=== PATIENT | female | born 1960 | race Caucasian/White ===

== ENCOUNTER → 2018-03-21 | Outpatient (CLI) | payer BC ==
--- NOTE | 2018-03-22 08:26 | MR ---
EXAMINATION TYPE: MR shoulder RT wo con DATE OF EXAM: 03/21/2018 COMPARISON: NONE HISTORY: Right shoulder pain, 6 months TECHNIQUE: Multiplanar, multisequence imaging of the right shoulder is performed without contrast. FINDINGS: Rotator Cuff: There is a 1.1 x 1.7 cm through thickness near complete tear of the supraspinatus tendo n and its insertion. There is edema and irregularity involving the insertion of the infraspinatus tendon compatible with t endinosis and partial tear. Subscapularis tendon intact. Acromioclavicular Joint: Hypertrophic change of the AC joint noted with some impingement of the supra spinatus tendon and muscle. Glenohumeral Joint: Small amount of fluid in the glenohumeral joint. Ligaments appear intact. Labrum: Linear signal within the anterior superior labrum compatible with tear. Biceps Tendon: The long head of biceps is in normal location within bicipital groove. There is increa sed fluid surrounding the tendon. There appears to be intrasubstance increased signal within the rota tor interval. Bone marrow signal: Faint marrow signal noted involving the greater tuberosity likely related to reac tive marrow edema. IMPRESSION: 1. Large near complete through thickness tear supraspinatus tendon originating approximately 1.2 cm f rom the insertion and measuring 1.1 x 1.7 cm. 2. Tendinosis and partial tear distal margin infraspinatus tendon. 3. bicipital tendinosis with suspected split tear within the rotator interval but no evidence of thro ugh thickness tear or retraction. 4. AC joint arthropathy with findings suggestive of impingement. 5. Anterior superior labral tear.
== END | disposition home or self-care (01) ==
LOC: RADMRIMAIN 17:49
PROVIDERS: ATTEND Orthopaedic Surgery
DX: M75.121 Complete rotator cuff tear or rupture of right shoulder, not specified as traumatic (principal); M75.91 Shoulder lesion, unspecified, right shoulder; M75.21 Bicipital tendinitis, right shoulder; M19.011 Primary osteoarthritis, right shoulder; S46.811A Strain of other muscles, fascia and tendons at shoulder and upper arm level, right arm, initial encounter; S43.401A Unspecified sprain of right shoulder joint, initial encounter

== ENCOUNTER → 2018-05-08 | Outpatient (CLI) | payer BC ==
[2018-05-08 10:44] LABS: Basophils % (A) 0 %; Eosinophils # (A) 0.1 k/uL (0-0.7); Eosinophils % (A) 3 %; HCT 44.4 % (34.0-46.0); HGB 14.3 gm/dL (11.4-16.0); Lymphocytes # (A) 1.1 k/uL (1.0-4.8); Lymphocytes % (A) 22 %; MCH 29.6 pg (25.0-35.0); MCHC 32.2 g/dL (31.0-37.0); MCV 92.1 fL (80.0-100.0); Mean Platelet Volume 7.3; Monocytes # (A) 0.5 k/uL (0-1.0); Monocytes % (A) 10 %; Neutrophils # (A) 3.2 k/uL (1.3-7.7); Neutrophils % (A) 62 %; Platelet Count 175 k/uL (150-450); RBC 4.82 m/uL (3.80-5.40); RDW 12.8 % (11.5-15.5); WBC 5.2 k/uL (3.8-10.6)
[2018-05-08 11:08] LABS: Potassium 4.4 mmol/L (3.5-5.1)
== END | disposition home or self-care (01) ==
LOC: LABPAT 09:11
PROVIDERS: ATTEND Orthopaedic Surgery
DX: Z01.818 Encounter for other preprocedural examination (principal); Z01.812 Encounter for preprocedural laboratory examination; M75.41 Impingement syndrome of right shoulder
CPT/HCPCS: 36415; 80051; 85025; 93005

== ENCOUNTER 2018-06-05 06:05 | Day surgery (SDC) | payer BC ==
[2018-05-31 11:34] VITALS: BMI 26.2
--- NOTE | 2018-06-04 15:45 | HP ---
HISTORY AND PHYSICAL Surgery is scheduled for 06/05/2018. Melinda Abraham is a 58-year-old patient seen with progressive right shoulder pain. After having treatment options discussed she elected to proceed with right shoulder arthroscopy. Consent regarding the procedure was obtained. PAST MEDICAL HISTORY: Hypertension. PAST SURGICAL HISTORY: Right total hip arthroplasty. Left total hip arthroplasty. Tonsillectomy. DAILY MEDICATIONS: Antihypertensive. ALLERGIES: PENICILLIN. SOCIAL HISTORY: Patient denies current tobacco use. PHYSICAL EXAMINATION: Evaluation of the right shoulder: Flexion 140 degrees, abduction 140 degrees, external rotation is 40 degrees with pain and weakness. There is tenderness along the anterior lateral acromion rotator cuff insertion site. Impingement positive at 100 degrees. Drop-arm sign is positive. Distal neurovascular exam is intact. RADIOGRAPHS: Radiographs of the right shoulder revealed a type 2 anterior acromion, evidence for acromioclavicular joint osteoarthritis. An MRI of the right shoulder revealed rotator cuff tear, acromioclavicular osteoarthritis impingement and labral tear. IMPRESSION: 1. Right shoulder impingement with rotator cuff tear. 2. Right shoulder labral tear. 3. Right shoulder acromioclavicular joint osteoarthritis. PLAN: Right shoulder arthroscopy with subacromial decompression, possible arthroscopic rotator cuff repair, possible Paty procedure and debridement. MMODL / IJN: [id number] /
[~2018-06-05 06:05] MED LIST: DEXAMETHASONE SOD PHOSPHATE 10 MG/ML 1 ML VIAL IV ONE; HYDROmorphone 0.5 MG/0.5 ML SYRINGE IVP PRN; LACTATED RINGERS 1,000 ML IV SCH; LIDOCAINE 1% 20 ML VIAL (10MG/ML) FOR IV START INTRADERMA PRN; MIDAZOLAM 2 MG/2 ML VIAL IV PRN; ONDANSETRON 4 MG/2 ML VIAL IVP ONE; SCOPOLAMINE 1.5MG/72HR PATCH TRANSDERM ONE; ceFAZolin IN SWFI 2 GM/20 ML SYRINGE IVP ONE
[2018-06-05] MEDS ORDERED: GLYCOPYRROLATE 0.2 MG/ML 2 ML VIAL ONE (08:11)
[2018-06-05] MEDS ORDERED: LIDOCAINE 1% INJ 10MG/ML (20 ML MDV) ONE (08:11)
[2018-06-05] MEDS ORDERED: SUCCINYLCHOLINE CHLORIDE 100 MG/5 ML SYR IV ONE (08:11)
[2018-06-05] MEDS ORDERED: ROPIVACAINE 5 MG/ML 30 ML VIAL ONE (08:11)
[2018-06-05] MEDS ORDERED: MIDAZOLAM 2 MG/2 ML VIAL ONE (08:11)
[2018-06-05] MEDS ORDERED: ePHEDrine SULFATE/0.9% NACL/PF 50 MG/5 ML SYRINGE IV ONE (08:11)
[2018-06-05] MEDS ORDERED: fentaNYL (PF) 50 MCG/ML 2 ML AMP ONE (08:11)
[2018-06-05] MEDS ORDERED: PROPOFOL 10 MG/ML 20 ML VIAL IV ONE (08:11)
--- NOTE | 2018-06-05 09:49 | P.OP ---
Date of Procedure: 06/05/18 Preoperative Diagnosis: Right shoulder impingement Postoperative Diagnosis: 1. Right shoulder rotator cuff tear 2. Right shoulder impingement 3. Right shoulder acromioclavicular joint osteoarthritis 4. Right shoulder partial long head biceps tendon tear 5. Right shoulder superior labral tear Procedure(s) Performed: 1. Right shoulder arthroscopic rotator cuff repair 2. Right shoulder arthroscopic subacromial decompression 3. Right shoulder arthroscopic Paty procedure 4. Right shoulder arthroscopic biceps tenotomy 5. Right shoulder arthroscopic debridement labral tear Implants: 15.5 Arthrex swivel lock anchor Anesthesia: GETA, regional (Interscalene block) Surgeon: Arya Guillermo Estimated Blood Loss (ml): 10 Pathology: none sent Condition: stable Disposition: PACU Indications for Procedure: 58-year-old patient seen with progressive right shoulder pain. After having treatment options discussed, she elected to proceed with arthroscopy. Operative Findings: see description of procedure Description of Procedure: Patient underwent an interscalene block by department of anesthesia. The patient was then taken to the operative suite. The patient underwent a general anesthetic by the department of anesthesia. The patient was placed into a lateral position and secured. There was appropriate padding of the bony prominence. Right shoulder was then prepped and draped in normal sterile orthopedic fashion. We placed the extremity in 10 pounds of longitudinal traction. A posterior incision was now made for a posterior working portal site. The trocar and cannula were inserted into the glenohumeral joint. Arthroscopy was initiated. Spinal needle was now inserted anteriorly, to ascertain the anterior working portal site. An incision was now made in that area, a trocar was inserted followed by a probe. There was superficial tearing of the superior labrum. The glenohumeral joint appeared unremarkable. There was no chondromalacia. The remaining labrum was stable. There was an obvious rotator cuff tear visualized from glenohumeral side. There was some partial tearing long head biceps tendon with hyperemia. I performed an arthroscopic biceps tenotomy. I debrided the superficial labral tear down to stable tissue. The residual labrum was probed and found to be stable. Instruments now removed from the glenohumeral joint. Utilizing the posterior working portal site, the trocar and cannula were inserted into the subacromial space. Arthroscopy initiated. I made an incision 2 fingerbreadths lateral to the acromion. I introduced my trocar followed by my ArthroCare ablator. I now began ablating thick subacromial bursal tissue, which exposed the undersurface of the anterior acromion. There was diminished subacromial space. There was a very prominent anterior acromion. A motorized bur was introduced and a subacromial decompression was performed. I also excised some osteophytes off the inferior aspect of the distal clavicle. The AC joint was visualized and noted to be fairly arthritic. The motorized bur was introduced in the anterior portal site and a Paty procedure was performed without difficulty, decompressing the AC joint nicely. I turned my attention to the rotator cuff. It was a 11.5 cm tear. I debrided the margins down to stable tissue. It was almost a 1.5 cm defect. I abraded the footprint with a motorized bur. I passed 2 everted mattress sutures through good bites of rotator cuff tendon. I repaired the tendon down the footprint utilizing one 5.5 swivel lock anchor. We a had good solid repair. We had good compression of the tendon along the entire footprint. The sutures were cut. I injected 1 mL Renue intra-articular. Instruments now removed from the portal sites. All portal sites were approximated with nylon suture. Sterile dressings were applied followed by a shoulder sling. The patient was awakened, transferred to a bed, and taken to recovery in stable condition.
[2018-06-05 09:52] VITALS: TEMP 96.8
[2018-06-05] MEDS ORDERED: LACTATED RINGERS 1,000 ML IV ONE ×2 (10:03)
[2018-06-05 10:38] VITALS: RESP 18
[2018-06-05 10:47] VITALS: PULSE 66
[2018-06-05 11:23] VITALS: BP 118/58
--- NOTE | 2018-06-05 18:33 | P.ONQ ---
Anesthesiology Proc Note - PNB - Peripheral Nerve Block Performed Right Interscalene Single Procedure Start Time: 07:36 Procedure Stop Time: 07:39 Indication: Acute Post-Operative Pain, Requested by physician Sedation Type: Sedate with meaningful contact maintained Preparation: Sterile Prep Needle Size: 50mm (2") Needle Gauge: 21 Technique: Ultrasound Injectate: 0.5% Ropivacaine (see comment for volume) (ropi .5% 30cc) Blood Aspirated: No Pain Paresthesia on Injection Noted: No Resistance on Injection: Normal Events: Uneventful and Well Tolerated
== END 2018-06-05 11:30 | disposition home or self-care (01) ==
LOC: OR 06:05
PROVIDERS: ATTEND Orthopaedic Surgery
DX: M75.101 Unspecified rotator cuff tear or rupture of right shoulder, not specified as traumatic (principal); M75.41 Impingement syndrome of right shoulder; M19.011 Primary osteoarthritis, right shoulder; S46.111A Strain of muscle, fascia and tendon of long head of biceps, right arm, initial encounter; S43.431A Superior glenoid labrum lesion of right shoulder, initial encounter; X58.XXXA Exposure to other specified factors, initial encounter; I10 Essential (primary) hypertension; Z79.899 Other long term (current) drug therapy; Z88.0 Allergy status to penicillin
CPT/HCPCS: 64415; 29826; 29827; 29824; C1713; C1765; J2250; J1100; J2405; J2001; J3010; J2795; J0330; J2704; J0690

== ENCOUNTER → 2023-01-15 | Outpatient (CLI) | payer BC ==
--- NOTE | 2023-01-15 12:19 | MR ---
EXAMINATION TYPE: MR knee RT wo con DATE OF EXAM: 01/15/2023 COMPARISON: None HISTORY: Rt knee pain TECHNIQUE: Multiplanar, multisequence imaging of the right knee is performed without IV contrast. FINDINGS: MEDIAL MENISCUS: Anterior and posterior horns are intact without tear. Extensive degeneration posteri or horn medial meniscus. LATERAL MENISCUS: Anterior and posterior horns are intact without tear. CRUCIATE LIGAMENTS: The anterior and posterior cruciate ligaments are intact and unremarkable. COLLATERAL LIGAMENTS: The medial collateral ligament and lateral collateral ligament complex are inta ct and unremarkable. There is a complex ganglion cyst noted adjacent to the inferior margin of the la teral collateral ligament measuring 1.2 cm x 1.6 cm. There are also 2 adjacent ganglion cysts noted m ore caudally measuring 1.8 cm x 0.9 cm and 3.6 cm x 0.5 cm. EXTENSOR MECHANISM: Visualized quadriceps and patellar tendons are intact. EFFUSION: No significant suprapatellar joint effusion. POPLITEAL CYST: No popliteal/reynolds cyst. TRICOMPARTMENT SPACES: Moderate narrowing medial tibiofemoral joint space. Moderate narrowing patello femoral joint space. Spurring within the intracondylar regions and margins of the tibial plateaus. CARTILAGE: Cartilaginous thinning medial tibial plateau with small defects seen. BONE MARROW SIGNAL: Bone marrow edema medial tibial plateau. OTHER: No additional significant abnormality is appreciated. IMPRESSION: 1.There is a complex ganglion cyst noted adjacent to the inferior margin of the lateral collateral li gament measuring 1.2 cm x 1.6 cm. There are also 2 adjacent ganglion cysts noted more caudally measur ing 1.8 cm x 0.9 cm and 3.6 cm x 0.5 cm. 2. Moderate changes of osteoarthritis medial compartment with cartilaginous thinning and small cartil aginous defect with underlying bone marrow edema.
== END | disposition home or self-care (01) ==
LOC: RADMRIMAIN 11:01
PROVIDERS: ATTEND Orthopaedic Surgery
DX: M67.461 Ganglion, right knee (principal); M17.11 Unilateral primary osteoarthritis, right knee; R60.0 Localized edema

== ENCOUNTER 2023-02-22 13:34 | Day surgery (SDC) | payer BC ==
[2023-02-20 09:23] VITALS: BMI 32.8
--- NOTE | 2023-02-22 07:36 | HP ---
HISTORY AND PHYSICAL DATE OF SURGERY: 02/22/2023. HISTORY OF PRESENT ILLNESS: Melinda Abraham is a 62-year-old patient, who was seen with progressive right knee pain. Options were discussed with her. She elected to proceed with right knee arthroscopy. Consent regarding the procedure was obtained. Medical clearance was provided by Dr. Solomon. PAST MEDICAL HISTORY: Hypertension and hyperlipidemia. PAST SURGICAL HISTORY: Right total hip arthroplasty, left hip arthroscopy, and tonsillectomy. DAILY MEDICATIONS: 1. Aspirin. 2. Diclofenac. 3. Motrin. 4. Rosuvastatin. ALLERGIES: Penicillin. SOCIAL HISTORY: She denies tobacco use. PHYSICAL EVALUATION OF THE RIGHT KNEE: Range of motion is 0 to 130 degrees. Mild effusion. Tenderness, medial joint line. Positive medial Afua's. Ligaments are stable. Hip rotation is without pain. Distal neurovascular exam is intact. IMAGING STUDIES: Right knee radiographs revealed moderate medial compartment osteoarthritis. MRI right knee revealed extensive abnormality of the medial meniscus, ganglion cyst, and mild osteoarthritic changes. IMPRESSION: 1. Internal derangement of right knee with medial meniscal tear. 2. Hypertension. 3. Hyperlipidemia. PLAN: Right knee arthroscopy with partial medial meniscectomy and debridement. MMODL / IJN: [id number] /
[2023-02-22] MEDS ORDERED: MIDAZOLAM 2 MG/2 ML VIAL IV PRN (14:03)
[2023-02-22] MEDS ORDERED: LIDOCAINE 1% (10MG/ML) FOR IV START INTRADERMA PRN (14:03)
[2023-02-22] MEDS ORDERED: HYDROmorphone 0.5 MG/0.5 ML SYRINGE IVP PRN (14:03)
[2023-02-22] MEDS ORDERED: DEXAMETHASONE SOD PHOSPHATE 4 MG/ML 1 ML VIAL IV ONE (14:03)
[2023-02-22] MEDS ORDERED: LACTATED RINGERS 1,000 ML IV SCH (14:03)
[2023-02-22] MEDS ORDERED: ONDANSETRON 4 MG/2 ML VIAL IVP ONE (14:03)
[2023-02-22] MEDS ORDERED: BUPIVACAINE (PF) 0.25% 30 ML VIAL MISCELLANE ONE (15:13)
[2023-02-22] MEDS ORDERED: LIDOCAINE 2% INJ 20 MG/ML (2 ML VIAL) ONE (15:46)
[2023-02-22] MEDS ORDERED: fentaNYL (PF) 50 MCG/ML 2 ML AMP ONE (15:46)
[2023-02-22] MEDS ORDERED: PROPOFOL 10 MG/ML 20 ML VIAL IV ONE (15:46)
[2023-02-22 16:37] VITALS: TEMP 98
--- NOTE | 2023-02-22 16:42 | P.OP ---
Date of Procedure: 02/22/23 Preoperative Diagnosis: Internal derangement right knee Postoperative Diagnosis: 1. Tear medial and lateral meniscus right knee 2. Grade 4 chondromalacia medial femoral condyle right knee 3. Reactive synovitis medial, lateral and suprapatellar compartments right knee Procedure(s) Performed: 1. Arthroscopic partial medial and lateral meniscectomy right knee 2. Arthroscopic microfracture medial femoral condyle right knee 3. Arthroscopic partial synovectomy medial, lateral and suprapatellar compartments right knee Anesthesia: BARBARAA, local Surgeon: Arya Guillermo Estimated Blood Loss (ml): 8 Pathology: none sent Condition: stable Disposition: PACU Indications for Procedure: 62-year-old patient seen with progressive right knee pain. After treatment options were discussed with her, she elected to proceed with arthroscopy. Operative Findings: See description of procedure Description of Procedure: Patient was taken to the operative suite. Patient underwent a general anesthetic by the department of anesthesia. Patient was given preoperative antibiotics. The right lower extremity was placed in a well-padded arthroscopic leg naylor. The right leg was prepped and draped in the normal sterile orthopedic fashion. A lateral parapatellar and suprapatellar incision was made. Trochars were inserted. Arthroscopy was initiated. Suprapatellar pouch revealed diffuse thick reactive synovitis. The patellofemoral joint appeared to articulate congruently. There was grade 2/3 chondromalacia of the patella without significant osteochondral tears. The scope was guided into the medial gutter. No loose bodies or plica were identified. The scope was then guided into the medial compartment. A medial parapatellar incision was made. Trocar inserted followed by probe. There was a complex tear involving the posterior horn of the medial meniscus. There were grade 4 chondromalacia changes medial femoral condyle with an area of exposed bone measuring 3 and 1 cm weightbearing surface. There was an area of grade 4 chondromalacia along the medial tibial plateau measuring about 1 cm. There was thick reactive synovitis anteriorly. I performed a partial medial meniscectomy getting down to stable meniscal tissue. I performed a partial synovectomy decompressing the reactive synovitis. I introduced a microfracture awl and performed a microfracture to medial femoral condyle penetrating the bone with resultant bleeding at the microfracture site. The residual meniscus was probed and was found to be stable. There was good decompression of the synovitis. The residual osteochondral surface of the media l femoral condyle was noted to be stable. Scope and probe were then guided into the intercondylar notch. Cruciates were identified, probed and found to be stable. The scope and probe were then guided into lateral compartment. There was a complex tear involving anterior horn of the lateral meniscus was extending into the midbody area. There were grade 2 chondromalacia changes of the lateral tibial plateau and grade 2/3 chondromalacia changes of the lateral femoral condyle with no tears. There was thick reactive synovitis anteriorly. I performed a partial lateral meniscectomy getting down to stable meniscal tissue. I performed a partial synovectomy decompressing the reactive synovitis. The residual meniscus was stable. There was good decompression of the synovitis. The scope was in guided back into the suprapatellar compartment. I introduced a motorized shaver into the suprapatellar compartment. I debrided some piecemeal fragments of meniscus that I encountered. I performed a partial synovectomy decompressing the reactive synovitis. Shaver was removed. There was good decompression of the synovitis. I took a look around the entire knee, no residual debris. Instruments were now removed from the joint. The joint was infiltrated with .25% Marcaine. Steri-Strips were applied to the portal sites. Sterile dressings were applied. The patient was placed into a ELMIRA hose. No tourniquet was utilized. The patient was awakened, transferred to a bed and taken to recovery stable satisfactory condition.
[2023-02-22 17:36] VITALS: RESP 16
[2023-02-22] MEDS ORDERED: HYDROcodone/APAP 5-325MG 1 EACH TAB ONE (17:38)
[2023-02-22] MEDS ORDERED: HYDROcodone/APAP 5-325MG 1 EACH TAB PO ONE (17:40)
[2023-02-22 17:52] VITALS: BP 144/80; PULSE 65
== END 2023-02-22 18:50 | disposition home or self-care (01) ==
LOC: OR 13:34
PROVIDERS: ATTEND Orthopaedic Surgery
DX: S83.231A Complex tear of medial meniscus, current injury, right knee, initial encounter (principal); S83.271A Complex tear of lateral meniscus, current injury, right knee, initial encounter; M94.261 Chondromalacia, right knee; M65.861 Other synovitis and tenosynovitis, right lower leg; M17.11 Unilateral primary osteoarthritis, right knee; I10 Essential (primary) hypertension; E78.5 Hyperlipidemia, unspecified; I34.0 Nonrheumatic mitral (valve) insufficiency; Z79.82 Long term (current) use of aspirin; Z79.899 Other long term (current) drug therapy; Z88.0 Allergy status to penicillin; Z79.1 Long term (current) use of non-steroidal anti-inflammatories (NSAID); Z96.643 Presence of artificial hip joint, bilateral
CPT/HCPCS: 29879; 29880; J1100; J0690; J2405; J3010; J2704; J2001